=== PATIENT | female | born 1965 | race Caucasian/White ===

== ENCOUNTER → 2017-11-10 | Outpatient (CLI) | payer MEDICARE, OTHER ==
[~2017-11-10] MED LIST: ATOR20TA65 PO; CELE-1 PO; CHOL10005 PO; CLOB15CR22 TP; CLOB15OI16 TP; CLON-298 PO; CLON-388 PO; DICL100G39 TOP; EXEN2PEN INJ; INSU100I30 SQ; INSU200I4 INJ; LAMO25TA60 PO; LISI-362 PO; LISI-374 PO; LIT300L FT; LORA-629 PO; METF-420 PO; NITR-105 PO; OMEP-137 PO; PIOG15TA66 PO; QUET25TA PO; SAXA5TAB4 PO; SERT-1 PO; SITA1TAB17 PO; VITA-197 PO
--- NOTE | 2017-11-11 22:03 | RADIOLOGY IMAGING REPORT ---
FACILITY: [facility] [place] PATIENT NAME: RUEL NOVOA : [id number] MR: [id number] V: [id number] EXAM DATE: [id number] ORDERING PHYSICIAN: TEMI COX TECHNOLOGIST: Gladis Sinha PROCEDURE: STRESS ECHOCARDIOGRAPHY COMPARISON: None. INDICATIONS: ARRHYTHMIA AND CHEST DISCOMFORT. FINDINGS: After informed consent the patient was exercised using the Leonard protocol. She was able to complete the end of stage 2 of the Leonard protocol at which time she achieved 7.0 mets and 95% of predicted maximum heart rate. She had normal blood pressure and oxygen saturation responses. There were no complaints of any chest pains or chest pressures. There were no significant ST segment changes. There was an occasional premature ventricular contraction but these resolved during exercise but then returned post-exercise. There are unifocal singlet premature ventricular contractions. ECHOCARDIOGRAPHIC PORTION OF STRESS TEST: At rest the patient had normal left ventricular ejection fraction of 67% with a grade 1/4 decrease in diastolic function. The right ventricle appears to contract normally. There is a mild amount of tricuspid insufficiency, a trace amount of mitral insufficiency. Estimated right ventricular systolic pressure was within normal range. With exercise the patient had normal hyperdynamic response to exercise with no left ventricular segmental wall motion abnormalities noted. IMPRESSION: 1. Normal stress echocardiograph with normal left ventricular function systolically at rest with hyperdynamic response to exercise and low probability of ischemia. 2. A grade 1/4 decrease in diastolic function. 3. A trace of mitral insufficiency and a trace to mild amount of tricuspid insufficiency with normal right ventricular systolic pressures. 4. Occasional premature ventricular contraction that subsided during exercise. Dictated by: Akosua George M.D. on 11/11/2017 at 12:51 Transcribed by: ELIEL on 11/11/2017 at 13:42 Approved by: Akosua George M.D. on 11/11/2017 at 22:01 [facility]
== END ==
LOC: RESP 02:03
PROVIDERS: ATTEND Internal Medicine Cardiovascular Disease
DX: I34.0 Nonrheumatic mitral (valve) insufficiency (principal); I36.1 Nonrheumatic tricuspid (valve) insufficiency
CPT/HCPCS: 93017; 93325; 93350

== ENCOUNTER 2018-02-07 21:32 | Emergency (ER) | payer MEDICARE, OTHER ==
[~2018-02-07 21:32] MED LIST changes: +PIOG15TA2 PO; -PIOG15TA66 PO
[2018-02-07] MEDS ORDERED: LAMO100T52 PO (21:58)
[2018-02-07] MEDS ORDERED: LIT150 PO (21:58)
[2018-02-07] MEDS ORDERED: INSU100C14 SQ (21:58)
[2018-02-07] MEDS ORDERED: LISI20TA29 PO (21:58)
[2018-02-07] MEDS ORDERED: LIRA0.6P3 SQ (21:58)
[2018-02-07] MEDS ORDERED: GABA-549 PO (21:58)
[2018-02-07 22:45] LABS: PLATELET COUNT, AUTOMATED 212 K/uL (150-450)
[2018-02-07 23:30] VITALS: BP 137/105
--- NOTE | 2018-02-07 23:36 | ER Report ---
History and Physical Time Seen By MD: 21:44 Hx. of Stated Complaint: patient states that after taking 18units of fast acting insulin her blood sugar started going up 428; patient states that she also has not been feeling well today "not her self" HPI/ROS CHIEF COMPLAINT: elevated blood sugar, not feeling well HISTORY OF PRESENT ILLNESS: This is a 52 year old female. She had an elevated blood sugar at dinner tonight. She takes her blood sugars in the morning, dinner and bedtime. Blood sugar was in the 300s at dinner. Took 18 units of Novalog insulin. Normally takes 10 units, but took 8 extra to cover for the high sugar. This was at about 1900 hours. Ate a bowl of [place] Flakes with milk. About an hour after this was going to go to bed and took blood sugar again and it had gone up to 420s. She has not been feeling well today. Had some trouble where she was weak and was having trouble concentrating and thinking strait today. This feeling has gone. She has some pain in the right base of her tongue and some in the soft tissues of her throat just below her ear near the ankle of the jaw. No pain in the skull, mastoid, or mandible. No ear pain. No dental problems. No sore throat. Always has a runny nose and this is no different than normal. No headache. No blurred vision. No increase in urination or thirst. REVIEW OF SYSTEMS: Constitutional: [place] hot today, but no known fevers and no chills. Eyes: As above. ENT: As above. Cardiovascular: No chest pain. No palpitations. Respiratory: No cough. No shortness of breath. Gastrointestinal: No abdominal pain. Has some nausea. Has irritable bowel, recent constipation. No blood in the stool or melena. Genitourinary: No dysuria. No frequency Musculoskeletal: As above. Skin: No rashes. Neurological: No numbness or dizziness. Allergies: Coded Allergies: Penicillins (Verified Allergy, Intermediate, HIVES, 02/07/18) Sulfa (Sulfonamide Antibiotics) (Verified Allergy, Intermediate, HIVES, ) Home Meds Active Scripts Atorvastatin Calcium (ATORVASTATIN CALCIUM) 20 Mg Tablet, 1 TAB PO DAILY, #90 TAB 3 Refills Prov:RADHA VILLALOBOS APRN [employer]-C 08/15/17 Loratadine (LORATADINE) 10 Mg Tablet, 1 TAB PO DAILY, #90 TAB 1 Refill Prov:RADHA VILLALOBOS APRN 07/18/17 Omeprazole (OMEPRAZOLE) 20 Mg Tablet.dr, 1 TAB PO QDAY, #90 TAB 3 Refills Prov:RADHA VILLALOBOS APRN-Celia 07/18/17 Reported Medications [place]ool Carbonate (LITHIUM CARBONATE) 150 Mg Capsule, 50 MG PO, CAPSULE 02/07/18 Lamotrigine (LAMOTRIGINE) 100 Mg Tablet, 100 MG PO 02/07/18 Gabapentin (GABAPENTIN) 300 Mg Capsule, 300 MG PO TID, CAPSULE 02/07/18 Lisinopril (LISINOPRIL) 20 Mg Tablet, 20 MG PO QDAY, TAB 02/07/18 Insulin Aspart (NOVOLOG) 100 Unit/1 Ml Cartridge, 100 UNIT SQ 02/07/18 Liraglutide (VICTOZA 2-GERMAIN) 0.6 Mg/0.1 Ml Pen.injctr, 1.2 MG SQ 02/07/18 Clobetasol Propionate/Emoll (CLOBETASOL EMOLLIENT 0.05% CRM) 15 Gm Cream..g., 1 YUNIOR TP BID Y for prn 07/18/17 Insulin Glargine 100 Un/Ml Pen (LANTUS SOLOSTAR PEN) 100 Unit/1 Ml Insuln.pen, 45 UNIT SQ QHS 07/18/17 Vitamin E Mixed (VITAMIN E) 400 Unit Capsule, 400 UNIT PO BID, CAPSULE 07/18/17 Quetiapine Fumarate (QUETIAPINE FUMARATE) 25 Mg Tablet, 25 MG PO QHS 02/10/17 Metformin Hcl (METFORMIN HCL) 1,000 Mg Tablet, 1 TAB PO BID, TAB 02/10/17 Cholecalciferol (Vitamin D3) (VITAMIN D3) 1,000 Unit Tablet, 1000 UNIT PO QDAY, TAB 02/10/17 Clonazepam (CLONAZEPAM) 0.5 Mg Tablet, 0.5 MG PO PRN, #6 TAB 02/10/17 Clobetasol Propionate (CLOBETASOL PROPIONATE) 15 Gm Oint...g., 0 TP PRN 02/10/17 Discontinued Reported Medications Diclofenac Sodium 1% Gel (VOLTAREN 1% GEL) 100 Gm Gel..gram., 4 GM TOP QID 07/18/17 Lamotrigine (LAMOTRIGINE) 25 Mg Tablet, 2 TAB PO DAILY 07/18/17 Lisinopril (LISINOPRIL) 40 Mg Tablet, 0.5 TAB PO QDAY, TAB 07/18/17 Saxagliptin Hcl (ONGLYZA) 5 Mg Tablet, 5 MG PO DAILY 07/18/17 Celecoxib (CELEBREX) 200 Mg Capsule, 200 MG PO QDAY, CAPSULE 02/10/17 Discontinued Scripts Nitrofurantoin Monohyd/M-Cryst (MACROBID 100 MG CAPSULE) 100 Mg Capsule, 1 CAP PO BID, #14 CAPSULE 0 Refills Prov:RADHA VILLALOBOS APRN [employer] 07/27/17 Reviewed Nurses Notes: Yes Hx Smoking: No Smoking Status: Former Smoker Hx Substance Use Disorder: No Constitutional Vital Sign - Last 24 Hours 02/07/18 02/07/18 02/07/18 02/07/18 21:38 21:45 22:00 22:15 Temp 97.3 Pulse 99 101 94 93 Resp 19 B/P (MAP) 165/92 159/97 (117) Pulse Ox 95 95 94 93 O2 Delivery Room Air 02/07/18 02/07/18 02/07/18 02/07/18 22:30 22:45 23:00 23:15 Pulse ? 93 89 B/P (MAP) ???/??? (1665) 129/87 (101) Pulse Ox 95 94 93 02/07/18 02/07/18 02/07/18 23:25 23:30 23:35 Pulse 91 90 B/P (MAP) 137/105 (116) Pulse Ox 94 94 Physical Exam General Appearance: The patient is alert. No acute distress, but a little anxious. Eyes: Pupils are equal, round. No pallor, injection or icterus. ENT: Mucous membranes are moist. Normal oral mucosa. Posterior oropharynx is normal. Normal tympanic membranes and canals. No masses felt at the base of the tongue. Neck: Supple. Some tenderness in the right periauricular area below the ears, mild fullness like possible lymph nodes, but no discrete lymph nodes felt here. Normal mastoid and jaw. Respiratory: Breathing easily and unlabored. Lungs are clear to auscultation. Cardiovascular: Regular rate and rhythm. No murmurs, gallops or rubs. Normal capillary refill. No edema. Gastrointestinal: Abdomen is soft and some tenderness across the epigastric area, but very mild. Nondistended. Normal active bowel sounds. No costovertebral angle tenderness with percussion. Neurological: Alert and oriented x3. No focal neurologic deficits Skin: Warm and dry. No rashes. Musculoskeletal: Extremities are nontender. Full range of motion. No tenderness in palpation of the cervical, thoracic and lumbar spine. DIFFERENTIAL DIAGNOSIS: After history and physical exam, differential diagnosis was considered for patient with nonspecific feelings of not feeling well that seemed to likely represent an early viral infection and also having hyperglycemia, which could also be explained by a viral infection as well. Medical Decision Making Data Points Result Diagram: 02/07/18214102/07/182141 Laboratory Hematology Test 02/07/18 21:42 02/07/18 22:30 02/07/18 23:13 Red Blood Count 5.45 M/uL (4.17-5.56) Mean Corpuscular Volume 87.9 fL (80.0-96.0) Mean Corpuscular Hemoglobin 30.7 pg (26.0-33.0) Mean Corpuscular Hemoglobin Concent 34.9 g/dL (32.0-36.0) Red Cell Distribution Width 13.3 % (11.5-14.5) Mean Platelet Volume 8.1 fL (7.2-11.1) Neutrophils (%) (Auto) 51.1 % (39.4-72.5) Lymphocytes (%) (Auto) 37.2 % (17.6-49.6) Monocytes (%) (Auto) 9.5 % (4.1-12.4) Eosinophils (%) (Auto) 1.7 % (0.4-6.7) Basophils (%) (Auto) 0.5 % (0.3-1.4) Nucleated RBC Relative Count (auto) 0.1 /100WBC Neutrophils # (Auto) 4.4 K/uL (2.0-7.4) Lymphocytes # (Auto) 3.2 K/uL (1.3-3.6) Monocytes # (Auto) 0.8 K/uL (0.3-1.0) Eosinophils # (Auto) 0.1 K/uL (0.0-0.5) Basophils # (Auto) 0.0 K/uL (0.0-0.1) Nucleated RBC Absolute Count (auto) 0.01 K/uL Sodium Level 139 mmol/L (137-145) Potassium Level 3.6 mmol/L (3.5-5.0) Chloride Level 100 mmol/L (98-107) Carbon Dioxide Level 23 mmol/L (22-31) Blood Urea Nitrogen 9 mg/dl (7-18) Creatinine 0.70 mg/dl (0.52-1.04) Glomerular Filtration Rate Calc > 60.0 Random Glucose 334 mg/dl (75-110) Calcium Level 10.1 mg/dl (8.4-10.2) Total Bilirubin 0.6 mg/dl (0.2-1.3) Aspartate Amino Transf (AST/SGOT) 45 U/L (0-35) Alanine Aminotransferase (ALT/SGPT) 63 U/L (0-56) Alkaline Phosphatase 145 U/L (0-126) C-Reactive Protein 0.9 mg/dl (<1.0) Total Protein 7.3 gm/dl (6.3-8.2) Albumin 4.3 g/dl (3.5-5.0) Acetone, Qualitative Negative Urine Color Yellow Urine Clarity Slightly-cloudy Urine pH 6.0 pH (4.8-9.5) Urine Specific [place] 1.028 Urine Protein Negative mg/dL (NEGATIVE) Urine Glucose (UA) 500 mg/dL (NEGATIVE) Urine Ketones Negative mg/dL (NEGATIVE) Urine Blood Negative (NEGATIVE) Urine Nitrite Negative (NEGATIVE) Urine Bilirubin Negative (NEGATIVE) Urine Urobilinogen Negative mg/dL (0.2-1.9) Urine Leukocyte Esterase Negative (NEGATIVE) Urine RBC <1 /HPF (0-2/HPF) Urine WBC 2 /HPF (0-5/HPF) Urine Squamous Epithelial Cells Many /LPF (</=FEW) Urine Bacteria Negative /HPF (NONE-FEW) Urine Mucus None /HPF (NONE-FEW) Whole Blood Glucose 251 mg/DL (75-110) Chemistry Test 02/07/18 21:42 02/07/18 22:30 02/07/18 23:13 White Blood Count 8.7 k/uL (4.5-11.0) Red Blood Count 5.45 M/uL (4.17-5.56) Hemoglobin 16.7 g/dL (12.0-16.0) Hematocrit 47.9 % (34.0-47.0) Mean Corpuscular Volume 87.9 fL (80.0-96.0) Mean Corpuscular Hemoglobin 30.7 pg (26.0-33.0) Mean Corpuscular Hemoglobin Concent 34.9 g/dL (32.0-36.0) Red Cell Distribution Width 13.3 % (11.5-14.5) Platelet Count 212 K/uL (150-450) Mean Platelet Volume 8.1 fL (7.2-11.1) Neutrophils (%) (Auto) 51.1 % (39.4-72.5) Lymphocytes (%) (Auto) 37.2 % (17.6-49.6) Monocytes (%) (Auto) 9.5 % (4.1-12.4) Eosinophils (%) (Auto) 1.7 % (0.4-6.7) Basophils (%) (Auto) 0.5 % (0.3-1.4) Nucleated RBC Relative Count (auto) 0.1 /100WBC Neutrophils # (Auto) 4.4 K/uL (2.0-7.4) Lymphocytes # (Auto) 3.2 K/uL (1.3-3.6) Monocytes # (Auto) 0.8 K/uL (0.3-1.0) Eosinophils # (Auto) 0.1 K/uL (0.0-0.5) Basophils # (Auto) 0.0 K/uL (0.0-0.1) Nucleated RBC Absolute Count (auto) 0.01 K/uL Glomerular Filtration Rate Calc > 60.0 Calcium Level 10.1 mg/dl (8.4-10.2) Total Bilirubin 0.6 mg/dl (0.2-1.3) Aspartate Amino Transf (AST/SGOT) 45 U/L (0-35) Alanine Aminotransferase (ALT/SGPT) 63 U/L (0-56) Alkaline Phosphatase 145 U/L (0-126) C-Reactive Protein 0.9 mg/dl (<1.0) Total Protein 7.3 gm/dl (6.3-8.2) Albumin 4.3 g/dl (3.5-5.0) Acetone, Qualitative Negative Urine Color Yellow Urine Clarity Slightly-cloudy Urine pH 6.0 pH (4.8-9.5) Urine Specific [place] 1.028 Urine Protein Negative mg/dL (NEGATIVE) Urine Glucose (UA) 500 mg/dL (NEGATIVE) Urine Ketones Negative mg/dL (NEGATIVE) Urine Blood Negative (NEGATIVE) Urine Nitrite Negative (NEGATIVE) Urine Bilirubin Negative (NEGATIVE) Urine Urobilinogen Negative mg/dL (0.2-1.9) Urine Leukocyte Esterase Negative (NEGATIVE) Urine RBC <1 /HPF (0-2/HPF) Urine WBC 2 /HPF (0-5/HPF) Urine Squamous Epithelial Cells Many /LPF (</=FEW) Urine Bacteria Negative /HPF (NONE-FEW) Urine Mucus None /HPF (NONE-FEW) Whole Blood Glucose 251 mg/DL (75-110) Toxicology Test 02/07/18 21:42 Acetone, Qualitative Negative Urinalysis Test 02/07/18 22:30 Urine Color Yellow Urine Clarity Slightly-cloudy Urine pH 6.0 pH (4.8-9.5) Urine Specific [place] 1.028 Urine Protein Negative mg/dL (NEGATIVE) Urine Glucose (UA) 500 mg/dL (NEGATIVE) Urine Ketones Negative mg/dL (NEGATIVE) Urine Blood Negative (NEGATIVE) Urine Nitrite Negative (NEGATIVE) Urine Bilirubin Negative (NEGATIVE) Urine Urobilinogen Negative mg/dL (0.2-1.9) Urine Leukocyte Esterase Negative (NEGATIVE) Urine RBC <1 /HPF (0-2/HPF) Urine WBC 2 /HPF (0-5/HPF) Urine Squamous Epithelial Cells Many /LPF (</=FEW) Urine Bacteria Negative /HPF (NONE-FEW) Urine Mucus None /HPF (NONE-FEW) ED Course/Re-evaluation ED Course Blood sugar was checked here at the bedside and is back down to the 300s where she was prior to eating tonight. She is feeling better, but nonspecific symptoms she was having are pretty much gone at this point other than the slight discomfort in the right soft tissue neck and base of the tongue area. She is not having any trouble swallowing. Labs were obtained which are fairly unremarkable. Her blood sugar is elevated but coming down. Her urine does show glucose in the urine but she has a negative acetone and negative ketones. Repeat blood glucose after an hour came down even further into the 280 range. We talked at length about use of insulin for correction doses, illnesses causing increased blood sugar levels. She will keep doing what she is doing, no changes in her insulin regimen at this point and she will follow-up with her regular doctor. Decision to Disposition Date: Feb 07, 2018 Decision to Disposition Time: 23:33 Depart Departure Latest Vital Signs Vital Signs Date Time Temp Pulse Resp B/P (MAP) Pulse Ox O2 Delivery O2 Flow Rate FiO2 02/07/18 23:35 90 94 02/07/18 23:30 137/105 (116) 02/07/18 21:38 97.3 19 Room Air Impression: Primary Impression: Type 2 diabetes mellitus with hyperglycemia Condition: Improved Disposition: HOME OR SELF-CARE Referrals: RADHA VILLALOBOS APRNP-C (PCP) Patient Instructions: Diabetic Hyperglycemia (ED) Additional Instructions: No changes to your insulin at this time other than considering continuing to use a correction dose like you did tonight at dinner. When using extra insulin like you did tonight, watch for low sugars later tonight. The throat discomfort and elevation of blood sugars are likely due to a viral infection, which should resolve over time. Blood sugars may run a little higher than usual during that time. Follow-up with your regular doctor as planned. Problem Qualifiers Primary Impression: Type 2 diabetes mellitus with hyperglycemia Diabetes mellitus oysterman insulin use: with oysterman use Qualified Codes: E11.65 - Type 2 diabetes mellitus with hyperglycemia; Z79.4 - jail ( current) use of insulin ASAD STEINBERG MD Feb 07, 2018 23:36
== END 2018-02-07 23:46 | disposition home or self-care (01) ==
LOC: ER 21:52
DX: E11.65 Type 2 diabetes mellitus with hyperglycemia (principal); Z79.4 Long term (current) use of insulin
CPT/HCPCS: 36416; 81001; 82009; 82040; 82247; 82310; 82374; 82435; 82565; 82947; 82948; 84075; 84132; 84155; 84295; 84450; 84460; 84520; 85025; 86140; 99283

== ENCOUNTER → 2018-02-15 | Outpatient (CLI) | payer MEDICARE, OTHER ==
[~2018-02-15] MED LIST changes: +GABA-549 PO; +INSU100C14 SQ; +LAMO100T52 PO; +LIRA0.6P3 SQ; +LISI20TA29 PO; +LIT150 PO
== END ==
LOC: LAB 08:52
PROVIDERS: ATTEND Internal Medicine Gastroenterology
DX: K76.0 Fatty (change of) liver, not elsewhere classified (principal)
CPT/HCPCS: 36415; 82105

== ENCOUNTER → 2018-02-15 | Outpatient (CLI) | payer MEDICARE, OTHER | LOC: LAB 08:51 | PROVIDERS: ATTEND Nurse Practitioner Psychiatric/Mental Health | DX: F31.60 Bipolar disorder, current episode mixed, unspecified (principal) | CPT/HCPCS: 80178 ==

== ENCOUNTER → 2018-02-15 | Outpatient (CLI) | payer MEDICARE, OTHER ==
[2018-02-15 10:03] LABS: LDL CHOLESTEROL 40 mg/dl
== END ==
LOC: LAB 08:42
PROVIDERS: ATTEND Nurse Practitioner Family
DX: E55.9 Vitamin D deficiency, unspecified (principal); E78.5 Hyperlipidemia, unspecified; E11.69 Type 2 diabetes mellitus with other specified complication; K74.60 Unspecified cirrhosis of liver
CPT/HCPCS: 82040; 82247; 82306; 82310; 82374; 82435; 82465; 82565; 82947; 83718; 84075; 84132; 84155; 84295; 84450; 84460; 84478; 84520

== ENCOUNTER → 2018-02-27 | Outpatient (CLI) | payer MEDICARE, OTHER ==
[~2018-02-27] MED LIST changes: -METF-420 PO; +METF-421 PO; -PIOG15TA2 PO; +PIOG15TA67 PO
--- NOTE | 2018-02-27 14:30 | RADIOLOGY IMAGING REPORT ---
FACILITY: [facility] [place] PATIENT NAME: Lesly Santoyo : 1965 MR: [id number] V: [id number] EXAM DATE: ORDERING PHYSICIAN: MELINDA HERNANDEZ TECHNOLOGIST: Location: [facility] - [place] Patient: Lesly Santoyo : 1965 Visit/Account:[id number] Date of Sevice: 02/27/2018 THYROID HISTORY: Difficulty swallowing COMPARISON: November 17, 2016 FINDINGS: SIZE: Right lobe: 5.4 x 2 x 1.8 cm Left lobe: 5.4 x 1.4 x 1.5 cm Isthmus: 3.5 mm PARENCHYMA: Heterogeneous NODULES: Right lobe: * In the mid right lobe is a 1.7 x 1.4 x 1.5 cm well-circumscribed hypoechoic nodule containing coar se calcifications. Left lobe: * There is a 7 mm solid nodule lateral aspect of the mid left lobe relatively unchanged in size. Th ere are several tiny cysts in the left lobe Isthmus: * None discrete. VASCULARITY: Within normal limits. ADDITIONAL FINDINGS: None. IMPRESSION: In the mid right lobe is a 1.7 x 1.4 x 1.5 cm well-circumscribed hypoechoic nodule containing coarse calcifications. This has increased in size when compared the prior study at which time the nodule me asured 1.8 x 0.9 x 1.5 cm by history this has been previously biopsied. Depending upon the biopsy re sults re-biopsy may be considered REFERENCE: 2015 [place] [employer] Management Guidelines for Adult Patients with Thyroid Nodules and D ifferentiated Thyroid Cancer: The [place] [employer] Guidelines Task Force on Thyroid Nodul es and Differentiated Thyroid Cancer. SONOGRAPHIC PATTERNS: * Benign: Purely cystic nodules (no solid component); estimated risk of malignancy <1 percent; no bi opsy recommended. * Very Low Suspicion: Spongiform or partially cystic nodules without any of the sonographic features described in low, intermediate, or high suspicion patterns; estimated risk of malignancy <3 percent; consider FNA at > 2 cm (Observation without FNA is also a reasonable option). * Low Suspicion: Isoechoic or hyperechoic solid nodule, or partially cystic nodule with eccentric so lid areas, without microcalcification, irregular margin or ETE (extra-thyroidal extension), or taller than wide shape; estimated risk of malignancy 5-10 percent; recommend FNA at >1.5 cm. * Intermediate Suspicion: Hypoechoic solid nodule with smooth margins without microcalcifications, E TE (extra-thyroidal extension), or taller than wide shape; estimated risk of malignancy 10-20 percent ; recommend FNA at > 1 cm. * High Suspicion: Solid hypoechoic nodule or solid hypoechoic component of a partially cystic nodule with one or more of the following features: irregular margins (infiltrative, microlobulated), microc alcifications, taller than wide shape, rim calcifications with small extrusive soft tissue component, evidence of ETE (extra-thyroidal extension); estimated risk of malignancy >70-90 percent; recommend FNA at > 1 cm. NOTES: * Although a sonographically suspicious subcentimeter thyroid nodule without evidence of extrathyroi clarence extension or sonographically suspicious lymph nodes may be observed with close sonographic follow -up rather than pursuing immediate FNA, patient age and preference may modify decision-making. A > 50% interval increase in nodule volume and/or development of new suspicious sonographic features are felt to be a valid reasons for potential re-aspiration of a nodule previously shown to have benig n FNA cytology. Report Dictated By: Ashli Pappas MD at 02/27/2018 2:12 PM Report E-Signed By: Ashli Pappas MD at 02/27/2018 2:26 PM WSN:CEE
== END ==
LOC: US 01:47
PROVIDERS: ATTEND Surgery
DX: E04.9 Nontoxic goiter, unspecified (principal)
CPT/HCPCS: 76536

== ENCOUNTER → 2018-05-23 | Outpatient (CLI) | payer MEDICARE, OTHER ==
[~2018-05-23] MED LIST changes: -CLON-298 PO; +CLON-331 PO; +CYCL10TA29 PO; +NAPR500T31 PO
== END ==
LOC: LAB 17:16
PROVIDERS: ATTEND Nurse Practitioner Primary Care
DX: R30.0 Dysuria (principal); R30.9 Painful micturition, unspecified
CPT/HCPCS: 81001; 87088

== ENCOUNTER → 2018-07-14 | Outpatient (CLI) | payer MEDICARE, OTHER ==
[~2018-07-14] MED LIST changes: -METF-421 PO; +METF-452 PO
--- NOTE | 2018-07-14 10:12 | RADIOLOGY IMAGING REPORT ---
FACILITY: [facility] PATIENT NAME: Lesly Santoyo : 1965 MR: [id number] V: [id number] EXAM DATE: ORDERING PHYSICIAN: KEYLA WOMACK TECHNOLOGIST: Location: [facility] - [place] Patient: Lesly Santoyo : 1965 Visit/Account:[id number] Date of Sevice: 07/14/2018 EXAMINATION: Abdominal ultrasound complete HISTORY: Cholecystectomy, cirrhosis COMPARISON: August 01, 2017 FINDINGS: Gallbladder: Postsurgical changes from a cholecystectomy Liver: There is enlarged measuring 20 cm in length. There is increased echogenicity throughout liver which can be seen with fatty infiltration or other infiltrative process Common duct: Normal measuring five mm. Pancreas: Unremarkable as imaged Spleen: Normal in size and echogenicity measuring 11.6 cm in length. Kidneys: Normal in size and echogenicity, the right measures 11.9 cm in length, and the left 12.5 cm . No hydronephrosis. Upper abdominal aorta and IVC: Negative. Ascites: None. IMPRESSION: Post surgical changes from a cholecystectomy Hepatomegaly with increased echogenicity seen throughout the liver which can be seen with fatty infil tration or other infiltrative process Report Dictated By: Ashli Pappas MD at 07/14/2018 10:04 AM Report E-Signed By: Ashli Pappas MD at 07/14/2018 10:07 AM WSN:CEE
== END ==
LOC: US 04:17
PROVIDERS: ATTEND Internal Medicine Gastroenterology
DX: K76.0 Fatty (change of) liver, not elsewhere classified (principal); Z90.49 Acquired absence of other specified parts of digestive tract
CPT/HCPCS: 36415; 76700; 82040; 82105; 82247; 82248; 84075; 84155; 84450; 84460

== ENCOUNTER → 2018-08-14 | Outpatient (CLI) | payer MEDICARE, OTHER ==
[~2018-08-14] MED LIST changes: +BARIUM SULFATE 148 GM POWDER ONE; +BARIUM SULFATE 240 ML ORAL SUS (NECTAR) ONE
--- NOTE | 2018-08-14 16:38 | SLP MODIFIED BARIUM SWALLOW ---
Speech Language Pathology Modified Barium Swallow Evaluation Report Date of Evaluation: 08-14-2018 Patient Name: Lesly Santoyo Patient : [id number], 52yrs Physician: DANIEL Louis Clinician: Cara Nichols M.S., [facility] BACKGROUND The patient is a 52 yr old female . The patient was referred for an MBS to assess swallow structure and function as indicated by s/s of pharyngeal dysphagia including globus sensation, coughing/choking primarily with thin liquids. Pt reported difficulty swallowing any variety of thin liquids and saliva, with episodes of coughing during or after swallowing. Pt. reported she consistently feels a globus sensation following deglutition of liquids, solids, and medications. Pt reports a history of GERD. An esophagram was performed approximately 10 years ago in [place]. She reported she is consistent with current medication for GERD and feels symptoms are well controlled at this time. Oxygen Supplementation: No Level of Consciousness: Non altered Cognitive/Linguistic: intact Orientation: x4 Language: -expressive: nonaphasic -receptive: nonaphasic Speech: -non-apraxic -non-dysarthric Voice -Dysphonia: none -Nasal emission: No -Hypernasality: No -Wet Vocal Quality: No Non-verbal Oral Structure and Function: within functional limits for speech and swallow Pain with Swallow: Denies. Pt. reported globus sensation. She reported symptoms during MBS following liquid, solid and barium pill swallows. MODIFIED BARIUM SWALLOW In conjunction with radiology, lateral view with trials of the following consistencies: thin and nectar barium liquid (noncarbonated), barium marked pureed, mechanical soft, and regular food consistencies, and a 1cm barium pill. ORAL STAGE Thin Liquids: no evidence of dysphagia . WNL Pureed Foods: no evidence of dysphagia . WNL Mechanical Soft Foods: no evidence of dysphagia . WNL Regular Foods: no evidence of dysphagia . WNL. PHARYNGEAL STAGE Thin Liquid: no evidence of dysphagia WNL. Pureed Food: no evidence of dysphagia WNL. Mechanical Soft Foods: no evidence of dysphagia WNL. Regular Food Consistency: no evidence of dysphagia WNL. Penetration/Aspiration Scale*: Thin liquid: Score of 1= Contrast does not enter airway Dickey thick liquids: Score of 1= Contrast does not enter airway Puree: Score of 1= Contrast does not enter airway Soft and regular solids: Score of 1= Contrast does not enter airway *(Dottiek et al. 1996) ESOPHAGEAL STAGE Peristaltic movement appears to be WNL Cervical Esophagus: Materials witnessed clearing from cervical esophagus WNL. Thoracic Esophagus: Materials witnessed clearing from upper/mid/lower thoracic esophagus WNL. GERD: Non witnessed Laryngopharyngeal Reflux (LPR) None witnessed. BARIUM PILL: 1cm barium pill taken with thin liquids. No oral, pharyngeal, or esophageal dysphagia witnessed. SUMMARY Normal Swallow Study Aspiration Risk: Low. No oral or pharyngeal stage dysphagia witnessed. No laryngeal penetration or aspiration witnessed. Pt. reported experiencing a globus sensation after swallowing liquids, solids and barium pill during evaluation. However, no evidence of dysphagia was observed during MBS. 1.Dysphagia Severity Rating Scale (Gramigna, 2006; Srinivasan et. al., 1990): 0 Normal swallow mechanism 2.No modification in consistency of diet is indicated. 3. Patient provided with verbal education regarding swallow anatomy and safe swallow recommendations to reduce symptoms of GERD. RECOMMENDATIONS 1. Further Evaluation: Follow-up with physician to further assess possible continued esophageal dysphagia 2. Speech Therapy: Not recommended at this time. Thank you for this referral. Please call [phone] to contact the [facility]. Cara Nichols M.S., [facility] , Victorina Downey [facility] [place], [employer] Clinician JESSI
--- NOTE | 2018-08-14 18:04 | RADIOLOGY IMAGING REPORT ---
FACILITY: [facility] PATIENT NAME: Lesly Santoyo : 1965 MR: [id number] V: [id number] EXAM DATE: [id number] ORDERING PHYSICIAN: RADHA VILLALOBOS TECHNOLOGIST: Location: [facility] Patient: Lesly Santoyo : 1965 Visit/Account:[id number] Date of Sevice: 08/14/2018 Exam type: ESOPH VIDEO SWALLOWING History: food getting stuck - choking with eating Comparison: None. Findings: The modified barium swallow was performed by the speech pathologist. Fluoroscopic assistance was pro vided. Patient received various liquids and food substances and a barium tablet. No dysphasia was n oted during the study. Please see the speech pathologist report for complete details. The fluorosco py dose area product was 381.58 micro-Archibald per meter squared IMPRESSION: 1. As above Report Dictated By: Ashli Pappas MD at 08/14/2018 5:59 PM Report E-Signed By: Ashli Pappas MD at 08/14/2018 6:00 PM WSN:[email or web address]
== END ==
LOC: RAD 07:00
PROVIDERS: ATTEND Nurse Practitioner Family
DX: R13.10 Dysphagia, unspecified (principal)
CPT/HCPCS: 74230

== ENCOUNTER → 2018-12-04 | Outpatient (CLI) | payer MEDICARE, OTHER ==
[~2018-12-04] MED LIST changes: +ASPI-1471 PO; +ATOR-1 PO; -BARIUM SULFATE 148 GM POWDER ONE; -BARIUM SULFATE 240 ML ORAL SUS (NECTAR) ONE; +CIPR-345 PO; -LAMO25TA60 PO; +LAMO25TA68 PO; +OMEP40CA48 PO; +PROP40TA45 PO; +UREA85CR TP
== END ==
LOC: LAB 14:50
PROVIDERS: ATTEND Nurse Practitioner Primary Care
DX: N39.0 Urinary tract infection, site not specified (principal); B96.20 Unspecified Escherichia coli [E. coli] as the cause of diseases classified elsewhere
CPT/HCPCS: 87077; 87088; 87186

== ENCOUNTER 2018-12-06 01:40 | Day surgery (SDC) | payer MEDICARE, OTHER ==
--- NOTE | 2018-12-04 15:34 | EKG ---
[place] [facility] [place] NAME: RUEL NOVOA : [id number] MR: [id number] V: [id number] EXAM DATE: ORDERING PHYSICIAN: TANYA FRANCOIS TECHNOLOGIST: SANTIAGO Brunson Reason : PRE-OP Blood Pressure : / mmHG Vent. Rate : 104 BPM Atrial Rate : 104 BPM P-R Int : 170 ms QRS Dur : 074 ms QT Int : 346 ms P-R-T Axes : 065 094 069 degrees QTc Int : 454 ms Sinus tachycardia Rightward axis Low voltage QRS Borderline ECG When compared with ECG of 29-AUG-2017 13:59, No significant change was found Confirmed by Heath Kang ([id number]) on 12/04/2018 10:46:10 PM Referred By: PRISCILA Confirmed By:Heath Chew
[2018-12-04 16:16] LABS: PLATELET COUNT, AUTOMATED 244 K/uL (150-450)
[2018-12-04 16:24] LABS: INR 1.09
[~2018-12-06] VITALS: Ht 162.6 cm; Wt 90.3 kg
[2018-12-06] VITALS (9 sets, daily range): BP systolic 105–138; BP diastolic 71–89
[2018-12-06] MEDS ORDERED: LIDOCAINE MPF 1% 5 ML VIAL ONE (06:58)
[2018-12-06] MEDS ORDERED: PROPOFOL EMUL(*) 10MG/ML 20 ML 60 ML ONE (06:58)
[2018-12-06] MEDS ORDERED: KETAMINE HCL 500 MG/10 ML VIAL ONE (07:00)
[2018-12-06] MEDS ORDERED: LIDOCAINE/SOD BICARB 8.4% SYR ID ONE (08:25)
[2018-12-06] MEDS ORDERED: NORMOSOL R SOLN(*) 1000 ML BAG 1,000 ML IV PRN (08:25)
--- NOTE | 2018-12-06 09:21 | Short(Outpt) Discharge Summary ---
Discharge Summary Reason for Hosp/Final Diag: (1) Dysphagia Status: Chronic Hospital Course & Plan: EGD with biopsies and esophageal dilation with 60F bougie completed without problems. (2) Gastritis Status: Chronic (3) Cirrhosis of liver Status: Chronic Departure Discharge to: Home, Self Care Discharge Instructions Home Meds Active Scripts Ciprofloxacin 250 Mg (CIPROFLOXACIN 250 MG) 250 Mg Tablet, 1 TAB PO BID for 3 Days, #6 TAB 0 Refills Prov:TEE HEART DNP, CLINICAL ENGINEER-BC 12/04/18 Omeprazole (OMEPRAZOLE) 40 Mg Capsule.dr, 1 CAP PO QDAY, #60 CAP 6 Refills Take 1 capsule first thing every morning on an empty stomach and wait 30 minutes before eating. Prov:TANYA FRANCOIS MD 09/25/18 Naproxen (NAPROXEN) 500 Mg Tablet, 1 TAB PO BID PRN for PAIN, #20 TAB 0 Refills Prov:TEE HEART DNP, CLINICAL ENGINEER-BC 04/05/18 Loratadine (LORATADINE) 10 Mg Tablet, 1 TAB PO DAILY, #90 TAB 1 Refill Prov:RADHA VILLALOBOS APRN CLINICAL ENGINEER-C 07/18/17 Reported Medications Aspirin (ASPIR 81) 81 Mg Tablet.dr, 81 MG PO QDAY, TAB 09/25/18 Atorvastatin Calcium (ATORVASTATIN CALCIUM) 80 Mg Tablet, 1 TAB PO QDAY, TAB 09/25/18 Lamotrigine (LAMOTRIGINE) 100 Mg Tablet, 100 MG PO 02/07/18 Gabapentin (GABAPENTIN) 300 Mg Capsule, 100 MG PO TID, CAPSULE 02/07/18 Lisinopril (LISINOPRIL) 20 Mg Tablet, 20 MG PO QDAY, TAB 02/07/18 Liraglutide (VICTOZA 2-GERMAIN) 0.6 Mg/0.1 Ml Pen.injctr, 1.2 MG SQ 02/07/18 Clobetasol Propionate/Emoll (CLOBETASOL EMOLLIENT 0.05% CRM) 15 Gm Cream..g., 1 YUNIOR TP BID PRN for prn 07/18/17 Insulin Glargine 100 Un/Ml Pen (LANTUS SOLOSTAR PEN) 100 Unit/1 Ml Insuln.pen, 45 UNIT SQ QHS 07/18/17 Vitamin E Mixed (VITAMIN E) 400 Unit Capsule, 400 UNIT PO BID, CAPSULE 07/18/17 Metformin Hcl (METFORMIN HCL) 1,000 Mg Tablet, 1 TAB PO BID, TAB 02/10/17 Cholecalciferol (Vitamin D3) (VITAMIN D3) 1,000 Unit Tablet, 1000 UNIT PO QDAY, TAB 02/10/17 Clonazepam (CLONAZEPAM) 0.5 Mg Tablet, 1 MG PO PRN, #6 TAB 02/10/17 Clobetasol Propionate (CLOBETASOL PROPIONATE) 15 Gm Oint...g., 0 TP PRN 02/10/17 Diet: Regular Activity: As Tolerated Special Instructions: Your upper endoscopy was completed without problems. I biopsied where your esophagus empties into your stomach to look for Caruso's esophagus, which can occur in people with chronic acid reflux, but I didn't find any other problems in your upper GI tract. I dilated your esophagus so we'll see how your symptoms are affected by this. My office will call you in the next couple of days to schedule a follow up appointment with me to see how you're doing after this procedure today. Problem Qualifiers (1) Dysphagia: Dysphagia type: pharyngeal phase Qualified Codes: R13.13 - Dysphagia, pharyngeal phase (2) Gastritis: Gastritis type: unspecified gastritis Chronicity: unspecified Gastritis bleeding: without bleeding Qualified Codes: K29.70 - Gastritis, unspecified, without bleeding (3) Cirrhosis of liver: Hepatic cirrhosis type: alcoholic cirrhosis Ascites presence: without ascites Qualified Codes: K70.30 - Alcoholic cirrhosis of liver without ascites TANYA FRANCOIS MD Dec 06, 2018 09:21
--- NOTE | 2018-12-06 12:07 | NUR ---
0915: Ayaan BUTLER TAKES REPORT FROM DR RAMIREZ THERAPEUTIC PROGRAM WORKER, REPORT IS THEN GIVEN TO Hoang BAIN RN. 0920: I TAKE REPORT FROM HERBERT BAIN RN 0935:PT STATES THAT SHE HAS HEAD ACHE, PT STATES SHE DOES NOT TAKE MEDICATION, PT DECLINES COOL TOWEL FOR HEAD. O945: PT PUT ON 1L OXYMASK, MAINTAINING SATS . 0957: PT MOVED TO RA, MAINTAINING SATS 1000: PT GIVEN WATER AND APPLE SAUCE. 1015:PT REQUESTED WARM BLANKETS, WARM BLANKETS GIVEN 1035:IV DC'ED, CATH INTACT, PRESSURE DRESSING APPLIED. 1045: PT WALKED TO CAR.
== END 2018-12-06 10:45 | disposition home or self-care (01) ==
LOC: OR 01:40
PROVIDERS: ATTEND Surgery
DX: K44.9 Diaphragmatic hernia without obstruction or gangrene (principal); E11.9 Type 2 diabetes mellitus without complications; I10 Essential (primary) hypertension; G47.33 Obstructive sleep apnea (adult) (pediatric); R00.0 Tachycardia, unspecified; K74.60 Unspecified cirrhosis of liver
CPT/HCPCS: 36415; 36416; 43239; 43248; 82248; 82948; 85025; 85610; 85730; 88305; 93005; C1769; J2001; J2704; J3490; 82040; 82247; 82310; 82374; 82435; 82565; 82947; 84075; 84132; 84155; 84295; 84450; 84460; 84520

== ENCOUNTER 2018-12-13 19:57 | Emergency (ER) | payer MEDICARE, OTHER ==
--- NOTE | 2018-12-13 20:15 | ER Report ---
History and Physical Time Seen By MD: 20:14 Hx. of Stated Complaint: HAD HAD DIFF BREATHING SINCE LAST TUE WHEN SHE HAD AN ANDOSCOPY. HAS BEEN TO THE ID FOR NEBS, CT SCAN. TAKING ALBUTERAL, PRED. FEELS LIKE HER LUNGS ARE SPASMING WHEN THE SOB AND COUGH STARTS HPI/ROS CHIEF COMPLAINT: Difficulty breathing, spasms HISTORY OF PRESENT ILLNESS: This is a 53-year-old female. She had an endoscopy last week with esophageal dilation. Since then she's been having some spasming in the upper esophagus with difficulty breathing and talking because of this. She went to the [facility] ER and they didn't evaluation for shortness of breath including a CT scan which was negative. They tried giving her albuterol and prednisone which has not helped. She has a history of sarcoidosis. The spasms will come and go, lasting sometimes as long as 30 minutes. During that time she is sometimes even unable to talk. Then they will go away and she will be okay. Seems to improve if she relaxes and rests a little bit. No fevers or chills. She still has some trouble swallowing even after the dilation but not as bad. No nausea or vomiting. Normal bowel function. Allergies: Coded Allergies: Penicillins (Verified Allergy, Intermediate, HIVES, 12/13/18) Sulfa (Sulfonamide Antibiotics) (Verified Allergy, Intermediate, HIVES, 12/13/18) Home Meds Active Scripts Diazepam (VALIUM) 5 Mg Tablet, 5 MG PO Q8H PRN for MUSCLE SPASMS, #10 TAB 0 Refills Prov:ASAD STEINBERG MD 12/13/18 Ciprofloxacin 250 Mg (CIPROFLOXACIN 250 MG) 250 Mg Tablet, 1 TAB PO BID for 3 Days, #6 TAB 0 Refills Prov:TEE HEART DNP, FNP-BC 12/04/18 Omeprazole (OMEPRAZOLE) 40 Mg Capsule.dr, 1 CAP PO QDAY, #60 CAP 6 Refills Take 1 capsule first thing every morning on an empty stomach and wait 30 minutes before eating. Prov:TANYA FRANCOIS MD 09/25/18 Naproxen (NAPROXEN) 500 Mg Tablet, 1 TAB PO BID PRN for PAIN, #20 TAB 0 Refills Prov:TEE HEART DNP, ROLL OVER LOADER-BC 04/05/18 Loratadine (LORATADINE) 10 Mg Tablet, 1 TAB PO DAILY, #90 TAB 1 Refill Prov:RADHA VILLALOBOS ASSISTANT DESIGNER ROLL OVER LOADER-C 07/18/17 Reported Medications Aspirin (ASPIR 81) 81 Mg Tablet.dr, 81 MG PO QDAY, TAB 09/25/18 Atorvastatin Calcium (ATORVASTATIN CALCIUM) 80 Mg Tablet, 1 TAB PO QDAY, TAB 09/25/18 Lamotrigine (LAMOTRIGINE) 100 Mg Tablet, 100 MG PO 02/07/18 Gabapentin (GABAPENTIN) 300 Mg Capsule, 100 MG PO TID, CAPSULE 02/07/18 Lisinopril (LISINOPRIL) 20 Mg Tablet, 20 MG PO QDAY, TAB 02/07/18 Liraglutide (VICTOZA 2-GERMAIN) 0.6 Mg/0.1 Ml Pen.injctr, 1.2 MG SQ 02/07/18 Clobetasol Propionate/Emoll (CLOBETASOL EMOLLIENT 0.05% CRM) 15 Gm Cream..g., 1 YUNIOR TP BID PRN for prn 07/18/17 Insulin Glargine 100 Un/Ml Pen (LANTUS SOLOSTAR PEN) 100 Unit/1 Ml Insuln.pen, 45 UNIT SQ QHS 07/18/17 Vitamin E Mixed (VITAMIN E) 400 Unit Capsule, 400 UNIT PO BID, CAPSULE 07/18/17 Metformin Hcl (METFORMIN HCL) 1,000 Mg Tablet, 1 TAB PO BID, TAB 02/10/17 Cholecalciferol (Vitamin D3) (VITAMIN D3) 1,000 Unit Tablet, 1000 UNIT PO QDAY, TAB 02/10/17 Clonazepam (CLONAZEPAM) 0.5 Mg Tablet, 1 MG PO PRN, #6 TAB 02/10/17 Clobetasol Propionate (CLOBETASOL PROPIONATE) 15 Gm Oint...g., 0 TP PRN 02/10/17 Reviewed Nurses Notes: Yes Hx Smoking: No (FOR 5 YEARS IN EARLY S. > 1 PPD) Smoking Status: Former Smoker Hx Substance Use Disorder: No Hx Alcohol Use: No Constitutional Vital Sign - Last 24 Hours 12/13/18 12/13/18 12/13/18 12/13/18 20:03 20:04 20:12 20:27 Temp 98.5 Pulse 109 102 101 Resp 24 18 33 B/P (MAP) 172/96 (121) 172/96 Pulse Ox 94 93 89 O2 Delivery Room Air 12/13/18 12/13/18 20:30 20:42 Pulse 98 Resp 13 B/P (MAP) 128/84 (99) Pulse Ox 91 Physical Exam General Appearance: Alert, no acute distress. Eyes: Pupils equal and round no injection. ENT: Normal oral mucosa. Moist mucous membranes. Neck: Neck is supple and non tender. Respiratory: Chest is non tender, lungs are clear to auscultation. Cardiac: regular rate and rhythm Gastrointestinal: Abdomen is soft, nontender, normoactive bowel sounds. DIFFERENTIAL DIAGNOSIS: After history and physical exam differential diagnosis was considered for patient with some esophageal type spasming. We talked about different possible causes including irritation after the endoscopy. She would like to go ahead and try a GI cocktail to see if that might help. Medical Decision Making Data Points Result Diagram: 12/13/18210912/13/182109 Laboratory Hematology Test 12/13/18 21:10 Red Blood Count 5.12 M/uL (4.17-5.56) Mean Corpuscular Volume 90.3 fL (80.0-96.0) Mean Corpuscular Hemoglobin 30.6 pg (26.0-33.0) Mean Corpuscular Hemoglobin Concent 33.9 g/dL (32.0-36.0) Red Cell Distribution Width 13.6 % (11.5-14.5) Mean Platelet Volume 7.8 fL (7.2-11.1) Neutrophils (%) (Auto) 63.8 % (39.4-72.5) Lymphocytes (%) (Auto) 27.9 % (17.6-49.6) Monocytes (%) (Auto) 6.5 % (4.1-12.4) Eosinophils (%) (Auto) 1.2 % (0.4-6.7) Basophils (%) (Auto) 0.6 % (0.3-1.4) Nucleated RBC Relative Count (auto) 0.1 /100WBC Neutrophils # (Auto) 5.9 K/uL (2.0-7.4) Lymphocytes # (Auto) 2.6 K/uL (1.3-3.6) Monocytes # (Auto) 0.6 K/uL (0.3-1.0) Eosinophils # (Auto) 0.1 K/uL (0.0-0.5) Basophils # (Auto) 0.1 K/uL (0.0-0.1) Nucleated RBC Absolute Count (auto) 0.01 K/uL Erythrocyte Sedimentation Rate 3 mm/HOUR (0-30) Sodium Level 138 mmol/L (137-145) Potassium Level 4.4 mmol/L (3.5-5.0) Chloride Level 101 mmol/L (98-107) Carbon Dioxide Level 26 mmol/L (22-31) Blood Urea Nitrogen 16 mg/dl (7-18) Creatinine 0.80 mg/dl (0.52-1.04) Glomerular Filtration Rate Calc > 60.0 Random Glucose 338 mg/dl (75-110) Calcium Level 9.7 mg/dl (8.4-10.2) Total Bilirubin 0.6 mg/dl (0.2-1.3) Aspartate Amino Transf (AST/SGOT) 61 U/L (0-35) Alanine Aminotransferase (ALT/SGPT) 73 U/L (0-56) Alkaline Phosphatase 133 U/L (0-126) Total Protein 7.4 g/dl (6.3-8.2) Albumin 4.5 g/dl (3.5-5.0) Chemistry Test 12/13/18 21:10 White Blood Count 9.2 k/uL (4.5-11.0) Red Blood Count 5.12 M/uL (4.17-5.56) Hemoglobin 15.7 g/dL (12.0-16.0) Hematocrit 46.2 % (34.0-47.0) Mean Corpuscular Volume 90.3 fL (80.0-96.0) Mean Corpuscular Hemoglobin 30.6 pg (26.0-33.0) Mean Corpuscular Hemoglobin Concent 33.9 g/dL (32.0-36.0) Red Cell Distribution Width 13.6 % (11.5-14.5) Platelet Count 251 K/uL (150-450) Mean Platelet Volume 7.8 fL (7.2-11.1) Neutrophils (%) (Auto) 63.8 % (39.4-72.5) Lymphocytes (%) (Auto) 27.9 % (17.6-49.6) Monocytes (%) (Auto) 6.5 % (4.1-12.4) Eosinophils (%) (Auto) 1.2 % (0.4-6.7) Basophils (%) (Auto) 0.6 % (0.3-1.4) Nucleated RBC Relative Count (auto) 0.1 /100WBC Neutrophils # (Auto) 5.9 K/uL (2.0-7.4) Lymphocytes # (Auto) 2.6 K/uL (1.3-3.6) Monocytes # (Auto) 0.6 K/uL (0.3-1.0) Eosinophils # (Auto) 0.1 K/uL (0.0-0.5) Basophils # (Auto) 0.1 K/uL (0.0-0.1) Nucleated RBC Absolute Count (auto) 0.01 K/uL Erythrocyte Sedimentation Rate 3 mm/HOUR (0-30) Glomerular Filtration Rate Calc > 60.0 Calcium Level 9.7 mg/dl (8.4-10.2) Total Bilirubin 0.6 mg/dl (0.2-1.3) Aspartate Amino Transf (AST/SGOT) 61 U/L (0-35) Alanine Aminotransferase (ALT/SGPT) 73 U/L (0-56) Alkaline Phosphatase 133 U/L (0-126) Total Protein 7.4 g/dl (6.3-8.2) Albumin 4.5 g/dl (3.5-5.0) EKG/Imaging Imaging CHEST PA LAT COMPARISONS: 2 view chest dated September 27, 2017 ADDITIONAL PERTINENT HISTORY: Throat spasms with history of sarcoma. FINDINGS: Cardiomediastinal silhouette: Negative. Pulmonary vasculature: Negative. Lung calderón: Negative. Pleural spaces: Negative. Osseous structures: Negative. Surrounding soft tissues: Negative. IMPRESSION: No acute cardiopulmonary disease. Report Dictated By: Johnathon Bowman MD at 12/13/2018 9:47 PM ED Course/Re-evaluation ED Course She did have some mild improvement with the GI cocktail. Chest x-ray was unremarkable. We'll go ahead and trial low-dose Valium for muscle spasms as well as a GI cocktail as needed. She will contact Dr. Brandt's office tomorrow to schedule follow-up appointment with him. Decision to Disposition Date: Dec 13, 2018 Decision to Disposition Time: 22:16 Depart Departure Latest Vital Signs Vital Signs Date Time Temp Pulse Resp B/P (MAP) Pulse Ox O2 Delivery O2 Flow Rate FiO2 12/13/18 20:42 98 13 91 12/13/18 20:30 128/84 (99) 12/13/18 20:04 98.5 Room Air Impression: Primary Impression: Esophageal spasm Condition: Improved Disposition: HOME OR SELF-CARE Referrals: RADHA VILLALOBOS APRN ROLL OVER LOADER-C (PCP) New Scripts Diazepam (VALIUM) 5 Mg Tablet 5 MG PO Q8H PRN for MUSCLE SPASMS, #10 TAB 0 Refills Prov: ASAD STEINBERG MD 12/13/18 Patient Instructions: Esophageal Spasm (ED) Additional Instructions: Take 1 tablespoon of the GI cocktail every 4 hours as needed for spasming. Trial of Valium 5mg, one every [address] Francois to arrange follow-up evaluation. ASAD STEINBERG MD Dec 13, 2018 20:15
[2018-12-13 20:30] VITALS: BP 128/84
[2018-12-13] MEDS ORDERED: MAG HYD/AL HYD/SIMETH 30ML UDC PO ONE ×2 (21:00→22:20)
[2018-12-13] MEDS ORDERED: ATRO/SCOPOL/HYOSCY/PB 5 ML ELX PO ONE ×2 (21:00→22:20)
[2018-12-13] MEDS ORDERED: LIDOCAINE 2% VISC SLN 15ML UDC PO ONE ×2 (21:00→22:20)
[2018-12-13 21:25] LABS: PLATELET COUNT, AUTOMATED 251 K/uL (150-450)
--- NOTE | 2018-12-13 21:54 | RADIOLOGY IMAGING REPORT ---
FACILITY: [facility] - [place] PATIENT NAME: Lesly Santoyo : 1965 MR: [id number] V: [id number] EXAM DATE: ORDERING PHYSICIAN: ASAD STEINBERG TECHNOLOGIST: Location: [facility] Patient: Lesly Santoyo : 1965 Visit/Account:[id number] Date of Sevice: 12/13/2018 CHEST PA LAT COMPARISONS: 2 view chest dated September 27, 2017 ADDITIONAL PERTINENT HISTORY: Throat spasms with history of sarcoma. FINDINGS: Cardiomediastinal silhouette: Negative. Pulmonary vasculature: Negative. Lung calderón: Negative. Pleural spaces: Negative. Osseous structures: Negative. Surrounding soft tissues: Negative. IMPRESSION: No acute cardiopulmonary disease. Report Dictated By: Johnathon Bowman MD at 12/13/2018 9:47 PM Report E-Signed By: Johnathon Bowman MD at 12/13/2018 9:49 PM WSN:[id number]
[2018-12-13] MEDS ORDERED: DIA5 PO (22:20)
[2018-12-13] MEDS ORDERED: DIAZEPAM 5 MG TAB TH 2 TAB/BOTTLE PO ONE (22:20)
[2018-12-15] MEDS ORDERED: HYOS0.1224 SL (12:40)
== END 2018-12-13 22:28 | disposition home or self-care (01) ==
LOC: ER 20:25
DX: K22.4 Dyskinesia of esophagus (principal)
CPT/HCPCS: 36415; 71046; 85025; 85651; 99283; A9270; 82040; 82247; 82310; 82374; 82435; 82565; 82947; 84075; 84132; 84155; 84295; 84450; 84460; 84520

== ENCOUNTER → 2019-01-30 | Outpatient (CLI) | payer MEDICARE, OTHER ==
[~2019-01-30] MED LIST changes: +DIA5 PO; +FLUT1DIS28 IH; +HYOS0.1224 SL; +PRE5 PO; +PRED20TA6 PO
== END ==
LOC: LAB 15:12
PROVIDERS: ATTEND Internal Medicine Gastroenterology
DX: R94.5 Abnormal results of liver function studies (principal); K76.0 Fatty (change of) liver, not elsewhere classified
CPT/HCPCS: 36415; 82040; 82105; 82247; 82248; 84075; 84155; 84450; 84460